=== PATIENT | female | born 1960 | race Caucasian/White ===

== ENCOUNTER → 2024-05-25 | Emergency (ER) | payer OTHER ==
[~2024-05-25] VITALS: Ht 177.8 cm; Wt 55.3 kg
[~2024-05-25] MED LIST: ACET-2030 PO; CYCL10TA9 PO
[2024-05-25 19:07] VITALS: BP 130/88; TEMP 97.9; O2SAT 98
== END | disposition home or self-care (01) ==
LOC: ER 18:45
DX: S80.02XA Contusion of left knee, initial encounter (principal); T14.8XXA Other injury of unspecified body region, initial encounter; M54.2 Cervicalgia; M54.50 Low back pain, unspecified; E03.9 Hypothyroidism, unspecified; E78.00 Pure hypercholesterolemia, unspecified; Z88.0 Allergy status to penicillin; V43.62XA Car passenger injured in collision with other type car in traffic accident, initial encounter; Y93.89 Activity, other specified; Y92.488 Other paved roadways as the place of occurrence of the external cause; Y99.8 Other external cause status